=== PATIENT | female | born 1945 | race Hispanic/Latino ===

== ENCOUNTER 2017-10-12 09:08 | Emergency (ER) | payer MEDICARE ==
[~2017-10-12] VITALS: Ht 142.2 cm; Wt 66.7 kg
[~2017-10-12 09:08] MED LIST: HYDROCODONE-AP1 EAC1 PO; Z ROPINIROLE HCL PO; Z.0.CARVEDILOL3.125 PO; Z.0.HYDROXYCHLOROQ20 PO; Z.0.NEXIUM40 MG PO; Z.0.OXAPROZIN600 MG PO; Z.0.SERTRALINE HCL50 PO; Z.0.VERAMYST10 GM NS
[2017-10-12] MEDS ORDERED: ACETAMINOPHEN 325 MG TAB PO ONE (10:00)
[2017-10-12] MEDS ORDERED: SODIUM CHLORIDE 0.9% 500ML 500 ML IV ONE (10:00)
[2017-10-12 10:18] LABS: BASOPHILS # (AUTO) 0.1 (0.0-0.1); BASOPHILS % 0.5 % (0.0-1.0); EOSINOPHILS % 0.1 % (0.0-6.0); HEMATOCRIT 36.8 % (34.2-44.1); HEMOGLOBIN 12.2 g/dL (12.0-16.0); LYMPHOCYTES # (AUTO) 1.5 (1.0-3.2); LYMPHOCYTES % 12.1 % (18.0-39.1); MEAN CORPUSCULAR HEMOGLOBIN 31.7 pg (28-32); MEAN CORPUSCULAR HGB CONC 33.2 g/dL (31-35); MEAN CORPUSCULAR VOLUME 95.6 fL (81-99); MONOCYTES # (AUTO) 0.7 (0.2-0.8); MONOCYTES % 5.6 % (4.4-11.3); NEUTROPHILS # (AUTO) 10.1 (2.1-6.9); NEUTROPHILS % 81.3 % (38.7-80.0); PLATELET COUNT 254 x10e3/uL (140-360); RED BLOOD COUNT 3.85 x10e6/uL (3.6-5.1); RED CELL DISTRIBUTION WIDTH 13.8 % (11.7-14.4)
--- NOTE | 2017-10-12 10:28 | Diagnostic Imaging Report ---
Examination: CT head without contrast Clinical Indication: Fall. Head injury. Technique: Transaxial noncontrast images from the skull base through the vertex were obtained. Sagittal and coronal reformatted images were done. Comparison: None. Findings: Scalp: No abnormalities. Bones: Intact. No fractures. No blastic or lytic lesions. Brain sulci: Appropriate for patient's age. Ventricles: The ventricular size is out of proportion with respect to cerebral convexity sulci, concerning for a communicating type of hydrocephalus, such as normal pressure hydrocephalus. Extra-axial space: No abnormalities. Parenchyma: There are confluent areas of low-attenuation within subcortical and periventricular white matter, nonspecific, but could represent microvascular ischemic disease. No masses, hemorrhage, or acute or chronic cortical based vascular insults. Suprasellar/sellar region: Partially CSF filled sella Craniocervical junction: The foramen magnum is patent. No Chiari one malformation. Incidental findings: Atherosclerotic calcification of the cavernous and supraclinoid internal carotid arteries. Impression: 1. No acute intracranial finding. 2. Moderate chronic microvascular ischemic change. 3. Findings as described above could be related to a communicating type of hydrocephalus, such as normal pressure hydrocephalus. Signed by: Dr. Dora Mclean M.D. on 10/12/2017 10:25 AM
--- NOTE | 2017-10-12 10:31 | Diagnostic Imaging Report ---
Examination: CT CERVICAL SPINE WITHOUT CONTRAST HISTORY:Fall. Neck injury. COMPARISON:None. TECHNIQUE: Multidetector helical axial images were obtained without contrast from the foramen magnum to T1. Coronal and sagittal reformatted images were done. Bone and soft tissue windows were evaluated. FINDINGS: Alignment:Stranding of normal lordosis. Vertebrae: Normal height and density. No acute fracture, infection or neoplasm. Superior endplate Schmorl's node at C7. Disc space heights: Severely narrowed from C3 through C7. Caliber of spinal canal: Developmentally normal. Posterior fossa and craniocervical junction: Foramen magnum patent. No Chiari 1 malformation. Soft tissues: No abnormality. Degenerative changes: Moderate bilateral facet arthropathy from C2-C3 through C4-C5. Diffuse disc osteophyte complexes from C4-C5 through C6-C7 without canal or foraminal stenosis. Grade 1 anterolisthesis of C2 on C3 and C3 on C4. No disc herniation or canal stenosis. Additional findings: Biapical pleural thickening. IMPRESSION: 1. No acute abnormalities. 2. Degenerative changes, as above. Signed by: Dr. Dora Mclean M.D. on 10/12/2017 10:28 AM
--- NOTE | 2017-10-12 10:52 | Diagnostic Imaging Report ---
PROCEDURE:ANKLE 3+ VIEWS LEFT INDICATION:Fall, left ankle pain COMPARISON:None. FINDINGS: No acute, displaced fracture or dislocation. Tibial plafond and talar dome are intact. Ankle mortise is well-maintained. Dystrophic calcification in the soft tissues adjacent to the medial malleolus. Degenerative plantar and posterior calcaneal spur. CONCLUSION: No acute osseous abnormality. Dictated by: Christian Martinez M.D. on 10/12/2017 at 10:56 Electronically approved by: Christian Martinez M.D. on 10/12/2017 at 10:56
[2017-10-12 12:54] LABS: ALANINE AMINOTRANSFERASE 18 IU/L (0-55); ALBUMIN 3.5 g/dL (3.5-5.0); ALKALINE PHOSPHATASE 86 IU/L (40-150); ANION GAP 12.4 mmol/L (8-16); BLOOD UREA NITROGEN 22 mg/dL (7-26); BUN/CREATININE RATIO 32 (6-25); CALCIUM 8.5 mg/dL (8.4-10.2); CARBON DIOXIDE 27 mmol/L (22-29); CHLORIDE 107 mmol/L (98-107); CREATINE KINASE 63 IU/L (29-168); CREATININE, SERUM 0.69 mg/dL (0.57-1.11); EST GLOMERULAR FILTRATION RATE > 60 ML/MIN (60-); GLUCOSE 117 mg/dL (74-118); POTASSIUM 3.4 mmol/L (3.5-5.1); SODIUM 143 mmol/L (136-145)
[2017-10-12 13:43] VITALS: BP 178/84
== END 2017-10-12 13:30 | disposition home or self-care (01) ==
LOC: ER 09:08
DX: M54.2 Cervicalgia (principal); S00.03XA Contusion of scalp, initial encounter; S93.492A Sprain of other ligament of left ankle, initial encounter; W18.39XA Other fall on same level, initial encounter; Y92.008 Other place in unspecified non-institutional (private) residence as the place of occurrence of the external cause; I10 Essential (primary) hypertension
CPT/HCPCS: 36415; 70450; 72125; 73610; 80053; 82550; 82553; 84484; 85025; 93005; 99284; J7040

== ENCOUNTER 2018-05-19 23:48 | Emergency (ER) | payer MEDICARE | END 2018-05-20 01:05 | disposition left against medical advice (07) | LOC: ER 23:48 | DX: T14.90XA Injury, unspecified, initial encounter (principal) ==

== ENCOUNTER 2020-06-18 14:11 | Emergency (ER) | payer MEDICARE ==
[~2020-06-18] VITALS: Ht 142.2 cm; Wt 67.1 kg
[2020-06-18] MEDS ORDERED: AMLODIPINE BESY10 MG PO (15:22)
[2020-06-18] MEDS ORDERED: PREDNISONE5 MG PO (15:31)
[2020-06-18] MEDS ORDERED: CYMBALTA20 MG PO (15:31)
[2020-06-18] MEDS ORDERED: LYRICA75 MG PO (15:31)
[2020-06-18] MEDS ORDERED: DIOVAN80 MG PO (15:31)
== END 2020-06-18 16:40 | disposition home or self-care (01) ==
LOC: FSED 15:00
DX: S93.401A Sprain of unspecified ligament of right ankle, initial encounter (principal); S91.205A Unspecified open wound of left lesser toe(s) with damage to nail, initial encounter; X50.1XXA Overexertion from prolonged static or awkward postures, initial encounter; Y92.008 Other place in unspecified non-institutional (private) residence as the place of occurrence of the external cause; I10 Essential (primary) hypertension; F41.9 Anxiety disorder, unspecified; M06.9 Rheumatoid arthritis, unspecified; M19.09 Primary osteoarthritis, other specified site; M54.9 Dorsalgia, unspecified; G89.29 Other chronic pain; Z96.641 Presence of right artificial hip joint
CPT/HCPCS: 99283

== ENCOUNTER 2021-04-17 16:10 | Emergency (ER) | payer MEDICARE ==
[~2021-04-17] VITALS: Ht 142.2 cm; Wt 67.1 kg
[~2021-04-17 16:10] MED LIST changes: +AMLODIPINE BESY10 MG PO; +CYMBALTA20 MG PO; +DIOVAN80 MG PO; +LYRICA75 MG PO; +PREDNISONE5 MG PO
[2021-04-17 16:48] LABS: BASOPHILS # (AUTO) 0.1 (0.0-0.1); BASOPHILS % 0.7 % (0.0-1.0); EOSINOPHILS % 0.1 % (0.0-6.0); HEMOGLOBIN 12.4 g/dL (12.0-16.0); LYMPHOCYTES # (AUTO) 0.9 (1.0-3.2); LYMPHOCYTES % 12.9 % (18.0-39.1); MEAN CORPUSCULAR HEMOGLOBIN 29.8 pg (28-32); MEAN CORPUSCULAR HGB CONC 31.8 g/dL (31-35); MEAN CORPUSCULAR VOLUME 93.8 fL (81-99); MONOCYTES # (AUTO) 0.8 (0.2-0.8); MONOCYTES % 10.9 % (4.4-11.3); NEUTROPHILS # (AUTO) 5.4 (2.1-6.9); NEUTROPHILS % 75.1 % (38.7-80.0); PLATELET COUNT 267 x10e3/uL (140-360); RED BLOOD COUNT 4.16 x10e6/uL (3.6-5.1); RED CELL DISTRIBUTION WIDTH 12.4 % (11.7-14.4)
[2021-04-17 16:56] LABS: INR 0.96; PROTHROMBIN TIME 13.5 seconds (11.9-14.5)
[2021-04-17 16:57] LABS: PARTIAL THROMBOPLASTIN TIME 30.6 seconds (23.8-35.5)
[2021-04-17 17:06] LABS: ALANINE AMINOTRANSFERASE 13 IU/L (0-55); ALBUMIN 3.5 g/dL (3.5-5.0); ALBUMIN/GLOBULIN RATIO 0.7 (0.8-2.0); ALKALINE PHOSPHATASE 114 IU/L (40-150); ANION GAP 14.2 mmol/L (8-16); BLOOD UREA NITROGEN 8 mg/dL (7-26); BUN/CREATININE RATIO 13 (6-25); CARBON DIOXIDE 25 mmol/L (22-29); CHLORIDE 100 mmol/L (98-107); CREATINE KINASE 77 IU/L (29-168); CREATININE, SERUM 0.63 mg/dL (0.57-1.11); EST GLOMERULAR FILTRATION RATE 91 ML/MIN (60-); GLUCOSE 100 mg/dL (74-118); POTASSIUM 4.2 mmol/L (3.5-5.1); SODIUM 135 mmol/L (136-145)
[2021-04-17] MEDS ORDERED: AZITHROMYCIN250 MG PO (17:50)
[2021-04-17] MEDS ORDERED: VENTOLIN HFA18 GM INH (17:50)
[2021-04-17] MEDS ORDERED: PREDNISONE20 MG PO (17:50)
[2021-04-18 01:06] VITALS: BP 129/85
== END 2021-04-17 23:00 | disposition home or self-care (01) ==
LOC: ER 16:37
DX: U07.1 COVID-19 (principal); R05.9 Cough, unspecified; I10 Essential (primary) hypertension; F41.9 Anxiety disorder, unspecified; M54.9 Dorsalgia, unspecified; G89.29 Other chronic pain; R94.31 Abnormal electrocardiogram [ECG] [EKG]
CPT/HCPCS: 36415; 71045; 80053; 82550; 82553; 83605; 83735; 83880; 84484; 85025; 85610; 85730; 87040; 93005; 99285; U0002